=== PATIENT | male | born 1995 | race Caucasian/White ===

== ENCOUNTER 2023-05-05 20:34 | Emergency (ER) | payer SELFPAY ==
[2023-05-05 20:34] VITALS: BP 140/90; PULSE 112; RESP 16; TEMP 37.3; O2SAT 100; BMI 25.5
[2023-05-05 20:37] VITALS: BMI 320.8
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
[2023-05-05 20:40] VITALS: BP 140/90; PULSE 112; RESP 16; TEMP 37.3; O2SAT 100
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
[2023-05-05 20:56] LABS: Microscopic, Urine URINE MICROSCOPIC (MICROSCOPIC)
[2023-05-05 21:00] LABS: Basophils % 0.2 % (0.1-2.0); Eosinophils # 0.2 K/mm3 (0.0-0.4); Eosinophils % 1.2 % (0.1-12.0); Hematocrit 47.9 % (42.0-52.0); Hemoglobin 15.9 g/dL (14.1-18.0); Lymphocytes # 1.5 K/mm3 (0.7-4.5); Lymphocytes % 12.1 % (10-50); Mean Corpuscular HGB Conc 33.3 g/dL (31.8-35.4); Mean Platelet Volume 9.7 fl (7.4-10.4); Monocytes # 0.5 K/mm3 (0.1-1.0); Monocytes % 4.3 % (1.7-9.3); Neutrophils # 9.9 K/mm3 (1.8-7.8); Neutrophils % 82.2 % (37.0-80.0); Platelet Count 235 K/mm3 (142-424); Red Blood Count 4.99 M/mm3 (4.60-6.20); White Blood Count 12.1 K/mm3 (4.8-10.8)
[2023-05-05 21:01] LABS: Appearance,Urine CLEAR (Clear); Bilirubin,Urine Negative (Negative); Blood, Urine TRACE-I (Negative); Color,Urine YELLOW (Yellow); Glucose,Urine (UA) Negative (Negative); Ketones,Urine Negative (Negative); Leukocyte Esterase,Urine Negative (Negative); Nitrate,Urine Negative (Negative); PH,Urine 5.5 (5.0-8.5); Protein,Urine 2+ (Negative); Specific Gravity, Urine >= 1.030 (1.005-1.030); Urobilinogen,Urine 0.2 EU/dl (0.2)
[2023-05-05 21:04] LABS: Ethyl Alcohol 231 mg/dl (0-10)
--- NOTE | 2023-05-05 21:09 | PC.NURSE ---
Pt gone to RAD
[2023-05-05 21:10] LABS: Bacteria,Urine Trace /lpf; WBC,Urine Occasional #/hpf (0-3)
[2023-05-05 21:12] LABS: Amphetamine/Metha Screen,Urine Negative ng/ml (<1000)
[2023-05-05 21:13] LABS: Barbiturates Screen,Urine Negative ng/ml (<200); Benzodiazepines Screen,Urine Negative ng/ml (<200)
--- NOTE | 2023-05-05 21:13 | PC.NURSE ---
Spoke with pt step-mother and gave update that pt was currently getting scans
[2023-05-05 21:14] LABS: Cannabinoid Screen,Urine Negative ng/ml (<50)
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
[2023-05-05 21:15] VITALS: BMI 320.8
[2023-05-05 21:15] LABS: Cocaine Screen,Urine Negative ng/ml (<300); Methadone Screen,Urine Negative ng/ml (<300)
[2023-05-05 21:17] LABS: Chloride 103 mmol/L (98-107); Potassium 3.7 mmoL/L (3.5-5.1); Sodium 140 mmol/L (136-145)
[2023-05-05 21:17] LABS: Opiate Screen,Urine Negative ng/ml (<300); Phencyclidine Screen,Urine Negative ng/ml (<25)
[2023-05-05 21:20] LABS: Alanine Aminotransferase 40 U/L (12-78); Albumin Level 4.5 g/dl (3.5-5.0); Albumin/Globulin Ratio 1.7 (1.1-1.8); Alkaline Phosphatase 86 U/L (38-126); Anion Gap 16.7 mEq/L (5-15); Aspartate Amino Transferase 65 U/L (17-59); Bilirubin,Total 0.4 mg/dl (0.2-1.3); Blood Urea Nitrogen 19 mg/dl (9-20); Calcium 8.6 mg/dl (8.4-10.2); Carbon Dioxide 24 mmol/L (22.0-30.0); Creatinine Clearance Estimated 113 mL/min (50-200); Estimated Glomerular Filt Rate 91 ml/min (>60); GFR (African American) 110 ML/MIN (>60); Globulin 2.6 g/dL (1.3-3.2); Glucose 100 mg/dl (74-100); Total Protein,Serum 7.1 g/dl (6.3-8.2)
--- NOTE | 2023-05-05 21:27 | PC.NURSE ---
PT ARRIVED BACK TO ROOM FROM RAD
[2023-05-05 21:29] VITALS: BP 144/93; PULSE 99; O2SAT 100
--- NOTE | 2023-05-05 21:30 | PC.NURSE ---
Pt grandparents at BS
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
--- NOTE | 2023-05-05 21:55 | PC.NURSE ---
Called Radiology and requested that they Power Share all of Pts results to [facility], per Dr. Fuentes. CR
[2023-05-05 22:00] VITALS: BP 142/92; PULSE 98; O2SAT 100
[2023-05-05 22:07] VITALS: BP 147/89; PULSE 97; O2SAT 100
--- NOTE | 2023-05-05 22:13 | PC.NURSE ---
Dr. Fuentes speaking with [facility]
[2023-05-05 22:28] VITALS: BP 147/82; PULSE 91; RESP 16; TEMP 37.3; O2SAT 97
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
== END 2023-05-05 22:41 | disposition short-term general hospital (02) ==
PROVIDERS: Emergency Provider Emergency Medicine
DX: S09.8XXA Other specified injuries of head, initial encounter (principal); S05.8X2A Other injuries of left eye and orbit, initial encounter; S42.255A Nondisplaced fracture of greater tuberosity of left humerus, initial encounter for closed fracture; F07.81 Postconcussional syndrome; F10.929 Alcohol use, unspecified with intoxication, unspecified; F17.210 Nicotine dependence, cigarettes, uncomplicated; V86.59XA Driver of other special all-terrain or other off-road motor vehicle injured in nontraffic accident, initial encounter; Y90.7 Blood alcohol level of 200-239 mg/100 ml
CPT/HCPCS: 70450; 70486; 71045; 71275; 72125; 72128; 72131; 72170; 73030; 74177; 80053; 80305; 81001; 85025; 96360; 99291; Q9967